=== PATIENT | female | born 1990 | race Caucasian/White ===

== ENCOUNTER 2023-07-24 21:06 | Outpatient (REF) | payer MEDICAID, SELFPAY ==
[2023-07-27 21:07] LABS: Age Gdln ACOG Testing Note (.); HPV Aptima Negative (Negative); IGP, Aptima HPV, rfx 16/18,45 Note (.)
== END 2023-07-24 21:07 | disposition home or self-care (01) ==
LOC: LAB 21:06
PROVIDERS: Visit Provider Obstetrics & Gynecology
DX: Z01.419 Encounter for gynecological examination (general) (routine) without abnormal findings (principal)
CPT/HCPCS: 87624; G0145

== ENCOUNTER 2024-08-08 20:15 | Outpatient (REF) | payer MEDICAID, SELFPAY ==
--- OUTSIDE RECORDS SUMMARY | 2024-08-08 20:19 | XMS_ITS | CCD ---
Author Organization [facility] Care Team Providers Care Vault Attendant Name Role Phone Katy Huerta Unavailable DR NADYA TRACY Admitting Unavailable DR NADYA TRACY Attending Unavailable DR KATERINA VELOZ Primary Care Unavailable DR NADYA TRACY Consulting Unavailable Medications Completed/Discontinued Medications Medication Drug Class(es) Dates Sig (Normalized) Sig (Original) methylPREDNISolone (1 source) Corticosteroid Start: 04-08-2015 Depo-Medrol 80 mg Apr, 80 mg Problems Active Problems Problem Classification Problem Date Documented Date Episodic/Chronic Immunizations and screening for infectious disease (2 sources) Contact with and (suspected) exposure to other viral communicable diseases; Translations: [Encounter for screening for human papillomavirus (HPV)] Onset: 06-01-2022 Resolved: 06-01-2022 Episodic Other screening for suspected conditions (not mental disorders or infectious disease) (4 sources) Encounter for screening for malignant neoplasm of cervix; Translations: [ENC SCREENING MALIG NEOPLASM CERV] Onset: 07-19-2022 Episodic Past or Other Problems Problem Classification Problem Date Documented Da te Episodic/Chronic Viral infection (1 source) COVID-19 Onset: 06-01-2022 Resolved: 06-01-2022 Results Test Name Value Interpretation Reference Range Facil ity PAP ACOG PANEL 2: 30 to 65on 07-26-2022 . . Normal [facility] Comment on above: Result Comment: Performed at: WB Performed By: #### [id number] #### [facility] [address] [address] [address] Elio Garcia Age Gdln ACOG Testing 30-65 [facility] Comment on above: Performed By: #### [id number] #### [facility] [address] [id number] Elio Garcia DIAGNOSIS: Comment [facility] Comment on above: Result Comment: NEGATIVE FOR INTRAEPITHE LIAL LESION OR MALIGNANCY. Performed at: WB Performed By: #### [id number] #### [facility] [address] [place] [address] Dr. Elio Garcia HPV Aptima Negative Normal Negative [facility] Comment on above: Result Comment: This nucleic acid amplif ication test detects fourteen high-risk HPV types (16,18,31,33,35,39,45,51,52,56,58,59,66,68) without differentiation. Performed at: =G Performed By: #### [id number] #### [facility] [address] [place] [address] Dr. Elio Garcia Methodology: Comment Normal [facility] Comment on above: Result Comment: This liquid based ThinPr ep(R) pap test was screened with the use of an image guided system. Performed at: WB Performed By: #### [id number] #### [facility] [address] [place] [address] Dr. Elio Garcia Note: Comment Normal [facility] Comment on above: Result Comment: The Pap smear is a scree richard test designed to aid in the detection of premalignant and malignant conditions of the uterine cervix. It is not a diagnostic procedure and should not be used as the sole means of detecting cervical cancer. Both false-positive and false-negative reports do occur. . Performed at: WB Performed By: #### [id number] #### [facility] [address] [place] [address] Dr. Elio Garcia Performed by: Comment Normal [facility] Comment on above: Result Comment: Sylvia Malhotra, Cytotechnol ogist (ASCP) Performed at: WB Performed By: #### [id number] #### [facility] [address] [place] [address] Dr. Elio Garcia Specimen adequacy: Comment Normal [facility] Comment on above: Result Comment: Satisfactory for evaluat ion. Endocervical and/or squamous metaplastic cells (endocervical component) are present. Performed at: WB Performed By: #### [id number] #### [facility] [address] [address] [address] Elio Garcia COVID Quick Testingon 2021 Result Positive [facility] Other Vital Signs Date Time Vital Sign Value Performing Clinician Facility 06-01-2022 14:50-0400 Body height 180.34 cm Katy Huerta Other [facility] Other 06-01-2022 14:50-0400 Body mass index (BMI) [Ratio] 25.8 kg/m2 Katy Huerta Other [facility] Other 06-01-2022 14:50-0400 Body temperature 98.9 [degF] Katy Huerta Other [facility] Other 06-01-2022 14:50-0400 Body weight 83.92 kg Katy Huerta Other [facility] Other 06-01-2022 14:50-0400 Respiratory rate 18 /min Katy Huerta Other [facility] Other 06-01-2022 14:50-0400 SaO2% (BldA) [Mass fraction] 99 % Katy Huerta Other [facility] Other Encounters Encounter Date Encounter Type Care Provider Facility Start: 07-19-2022 End: 07-19-[address] NADYA TRACY Facility:[facility] Start: 06-01-2022 (URG) Urgent Care Visit Katy son [facility] Start: 06-01-2022 End: 06-01-2022 ambulatory Katy Huerta Other [facility] Other Payers Date Payer Category Payer Unknown [id number] 1961 Unknown [id number] Unknown [id number] Social History Date Type Detail Facility Sex Assigned At [facility] Other Evaluation note 06-01-2022 Note Date & Type Note Facility 06-01-2022 Evaluation note Encounter Date Diagnosis Assessment Notes May, Contact with and (suspected) exposure to other viral communicable diseases (ICD-10 - Z20.828) May, COVID-19 (ICD-10 - U07.1) Discharge Instructions for COVID-19 (Suspected or Confirmed ) material was printed Drink plenty fluids, get plenty of rest. Take Tylenol or Motrin as needed for aches pains or fevers. Quarantine for 5 days after the onset of your symptoms of COVID. Follow-up with your family physician if no improvement in 2 to 3 days. [facility] Other Summary Purpose Family History No Family History Records Found Advance Directives No Advanced Directives Records Found Additional Source Comments REASON FOR VISIT (unrecogniz ed section and content) WHITE DODGE DART, CONGESTION , COUGH, FATIGUE, H/A, NAUSEA, EXPOSURE INFORMATION SOURCE (unrecogn ized section and content) DATE CREATED AUTHOR 07/27/2022 [employer] FOR RECORDS PERTAINING TO PATIENTS WHO ARE OR HAVE BEEN ENROLLED IN A CHEMICAL DEPENDENCY/SUBSTANCEABUSE PROGRAM, SOME INFORMATION MAY BE OMITTED. This clinical summary was aggregated from multiple sources. Caution should be exercised in using it in the provision of clinical care. This summary normalizes information from multiple sources, and as a consequence, information in this document may materially change the coding, format and clinical context of patient data. In addition, data may be omitted in some cases. CLINICAL DECISIONS SHOULD BE BASED ON THE PRIMARY CLINICAL RECORDS. [employer] provides no warranty or guarantee of the accuracy or completeness of information in this document.
== END 2024-08-08 20:16 | disposition home or self-care (01) ==
LOC: LAB 20:15
PROVIDERS: Visit Provider Obstetrics & Gynecology
DX: Z01.419 Encounter for gynecological examination (general) (routine) without abnormal findings (principal)
CPT/HCPCS: 87624; 88175